=== PATIENT | female | born 1985 | race Caucasian/White ===

== ENCOUNTER → 2018-01-27 | Outpatient (CLI) | payer BC | LOC: M LRY 16:34 | DX: Z34.81 Encounter for supervision of other normal pregnancy, first trimester (principal); Z36.89 Encounter for other specified antenatal screening ==

== ENCOUNTER → 2018-03-25 | Outpatient (CLI) | payer BC | LOC: M RAD 17:15 | DX: Z34.82 Encounter for supervision of other normal pregnancy, second trimester (principal); Z36.89 Encounter for other specified antenatal screening; Z3A.19 19 weeks gestation of pregnancy | CPT/HCPCS: 76811 ==

== ENCOUNTER → 2018-05-15 | Outpatient (CLI) | payer BC ==
[2018-05-15 20:16] LABS: HEMATOCRIT 36.6 % (36.0-47.0); HEMOGLOBIN 11.9 g/dl (12.0-15.5); MEAN CORPUSCULAR HEMOGLOBIN 27.3 pg (27.0-33.0); MEAN CORPUSCULAR HGB CONC 32.5 g/dl (32.0-36.5); MEAN CORPUSCULAR VOLUME 83.9 fl (80.0-96.0); PLATELET COUNT, AUTOMATED 270 10^3/uL (150-450); RED BLOOD COUNT 4.36 10^6/uL (4.00-5.40); RED CELL DISTRIBUTION WIDTH 14.1 % (11.5-14.5); WHITE BLOOD COUNT 11.8 10^3/uL (4.0-10.0)
[2018-05-16 09:54] LABS: GLUCOSE CHALLENGE TEST 1 HOUR 117 MG/DL (LESS THAN 140)
== END ==
LOC: M LRY 16:57
DX: Z34.83 Encounter for supervision of other normal pregnancy, third trimester (principal); Z36.89 Encounter for other specified antenatal screening
CPT/HCPCS: 82950

== ENCOUNTER → 2018-06-10 | Outpatient (CLI) | payer BC | LOC: M RAD 17:13 | DX: O26.843 Uterine size-date discrepancy, third trimester (principal); Z3A.30 30 weeks gestation of pregnancy | CPT/HCPCS: 76816 ==

== ENCOUNTER → 2018-07-21 | Outpatient (REF) | payer BC | LOC: M LAB REF 17:22 | DX: O99.213 Obesity complicating pregnancy, third trimester (principal) | CPT/HCPCS: 87081 ==

== ENCOUNTER 2018-08-06 10:45 | Inpatient (IN) | payer BC ==
[2018-08-06 12:11] LABS: HEMATOCRIT 39.4 % (36.0-47.0); HEMOGLOBIN 12.9 g/dl (12.0-15.5); MEAN CORPUSCULAR HEMOGLOBIN 26.5 pg (27.0-33.0); MEAN CORPUSCULAR HGB CONC 32.7 g/dl (32.0-36.5); MEAN CORPUSCULAR VOLUME 81.1 fl (80.0-96.0); PLATELET COUNT, AUTOMATED 297 10^3/uL (150-450); RED BLOOD COUNT 4.86 10^6/uL (4.00-5.40); RED CELL DISTRIBUTION WIDTH 14.7 % (11.5-14.5); WHITE BLOOD COUNT 12.4 10^3/uL (4.0-10.0)
[2018-08-06] MEDS: LACTATED RINGER'S 1000 ML IV (12:11)
[2018-08-06] MEDS: LR 1,000 ML IV (12:11)
[2018-08-06] MEDS: OXYTOCIN DRIP 30 UNITS in APPROPRIATE DILUENT 1 EA IV (12:12)
[2018-08-06] MEDS: METHYLERGONOVINE MALEATE 0.2 MG/ML VIAL (J2210) IM (17:00)
[2018-08-06 17:02] LABS: CORD GAS ABE V -6.7; CORD GAS HCO3 V 18.3 MEQ/L; CORD GAS O2 SAT V 83.6 %; CORD GAS PH V 7.325 UNITS; CORD GAS SBC V 18.8 MEQ/L; CORD GAS TCO2 V 19.4 MEQ/L
[2018-08-06 17:04] LABS: CORD GAS ABE A -4.9; CORD GAS HCO3 A 20.3 MEQ/L; CORD GAS O2 SAT A 82.9 %; CORD GAS PCO2 A 38.4 mmHg; CORD GAS PO2 A 38.1 mmHg; CORD GAS SBC A 20.1 MEQ/L; CORD GAS TCO2 A 21.4 MEQ/L
[2018-08-06] MEDS ORDERED: ANUSOL HC CREAM 30GM TOP (17:15)
[2018-08-06] MEDS ORDERED: DIBUCAINE 1% OINTMENT 30GM TOP (17:15)
[2018-08-06] MEDS ORDERED: METOCLOPRAMIDE INJ 10MG/2ML VIAL (J2765) IV (17:15)
[2018-08-06] MEDS ORDERED: MOM 30ML SUSPENSION UDC PO (17:15)
[2018-08-06] MEDS ORDERED: DOCUSATE SODIUM 100 MG CAP PO (17:15)
[2018-08-06] MEDS ORDERED: TERBUTALINE SULFATE 1 MG/ML VIAL (J3105) SC (17:45)
[2018-08-06] MEDS: ACETAMINOPHEN 500 MG TAB PO (19:58)
[2018-08-06] MEDS: METHYLERGONOVINE MALEATE 0.2 MG TAB PO (23:03)
[2018-08-07] MEDS: METHYLERGONOVINE MALEATE 0.2 MG TAB PO ×3 (05:14→16:15)
[2018-08-07] MEDS: PRENATAL VITAMINS CHEWABLE TABLET PO (08:58)
[2018-08-07] MEDS ORDERED: METHYLERGONOVINE MALEATE 0.2 MG TAB PO (23:15)
[2018-08-08] MEDS: RHOGAM 300 MCG (1500 IU) INJ (J2790) IM (07:08)
[2018-08-08] MEDS: MEASLES,MUMPS,RUBELLA VACCINE INJ (MMR-II) (90707) SC (07:09)
[2018-08-08] MEDS: PRENATAL VITAMINS CHEWABLE TABLET PO (08:27)
[2018-08-08] MEDS: IBUPROFEN 800 MG TAB PO (09:39)
== END 2018-08-08 12:35 | disposition home or self-care (01) | DRG 560 ==
LOC: M LDI 10:45 → M OBS 18:26
PROVIDERS: Advanced Practice Midwife
PROC: 10E0XZZ Delivery of Products of Conception, External Approach (ICD-10-PCS; principal; 2018-08-06)
DX: O42.02 Full-term premature rupture of membranes, onset of labor within 24 hours of rupture (principal); O69.81X0 Labor and delivery complicated by cord around neck, without compression, not applicable or unspecified; Z3A.38 38 weeks gestation of pregnancy; Z37.0 Single live birth

== ENCOUNTER → 2019-01-06 | Outpatient (CLI) | payer BC ==
[~2019-01-06] MED LIST: IBUP-1114 PO; MAPA500T2 PO; PRENTAB9 PO
[2019-01-06 18:28] LABS: FREE T4 0.9 NG/DL (0.76-1.46); THYROID STIMULATING HORMONE 2.19 uIU/ML (0.358-3.740); TOTAL 25(OH) VITAMIN D 37.3 NG/ML (30.0-100.0)
== END ==
LOC: M SMT 15:13
PROVIDERS: ATTEND Advanced Practice Midwife
DX: F53.0 Postpartum depression (principal)

== ENCOUNTER → 2019-10-01 | Outpatient (REF) | payer BC | LOC: M SFHCWAGY 12:59 | PROVIDERS: ATTEND Advanced Practice Midwife | DX: Z12.4 Encounter for screening for malignant neoplasm of cervix (principal); R87.610 Atypical squamous cells of undetermined significance on cytologic smear of cervix (ASC-US) | CPT/HCPCS: 87624; G0123 ==

== ENCOUNTER → 2020-02-25 | Outpatient (CLI) | payer BC ==
--- NOTE | 2020-02-25 14:28 | REP ---
PELVIC SONOGRAPHY: HISTORY: Pelvic pain. FINDINGS: Transabdominal and transvaginal scanning are performed. Uterine dimensions are normal at 8.4 x 3.2 x 3.9 cm. An IUD is seen in the uterine endometrium in good position. There is a 2.4 cm follicle cyst in the right ovary. Right ovary dimensions inclusive of this are 3.9 x 3.2 x 3.2 cm. Doppler flow is present in the right ovary with resistive index by Doppler 0.48. The left ovary is normal measuring 3.1 x 1.8 x 2.2 cm. Doppler flow is present in the left ovary as well, resistive index 0.38 IMPRESSION: 2.4 cm follicle cyst right ovary. IUD in good position. Otherwise unremarkable pelvic sonography.
== END ==
LOC: M WHC 12:25
PROVIDERS: ATTEND Advanced Practice Midwife
DX: R10.2 Pelvic and perineal pain (principal)

== ENCOUNTER 2021-10-16 10:26 | Outpatient (RCR) | payer BC | END 2021-10-23 | LOC: M PT 10:26 | PROVIDERS: ATTEND Advanced Practice Midwife | DX: N39.46 Mixed incontinence (principal) ==

== ENCOUNTER → 2022-04-02 | Outpatient (CLI) | payer BC ==
[2022-04-02 16:22] LABS: FREE T4 0.96 NG/DL (0.76-1.46); THYROID STIMULATING HORMONE 6.33 uIU/ML (0.358-3.740)
== END ==
LOC: M PLALAB 11:55
PROVIDERS: ATTEND Internal Medicine Endocrinology, Diabetes & Metabolism
DX: E03.9 Hypothyroidism, unspecified (principal)

== ENCOUNTER → 2023-05-30 | Outpatient (CLI) | payer BC | LOC: M PLAIMG 10:48 | PROVIDERS: ATTEND Physician Assistant Medical | DX: G56.91 Unspecified mononeuropathy of right upper limb (principal); M40.50 Lordosis, unspecified, site unspecified ==

== ENCOUNTER → 2023-05-30 | Outpatient (CLI) | payer BC ==
[2023-05-30 15:21] LABS: HEMATOCRIT 45.3 % (36.0-47.0); HEMOGLOBIN 14.5 g/dl (12.0-15.5); MEAN CORPUSCULAR HEMOGLOBIN 27.4 pg (27.0-33.0); MEAN CORPUSCULAR VOLUME 85.5 fl (80.0-96.0); PLATELET COUNT, AUTOMATED 308 10^3/uL (150-450); WHITE BLOOD COUNT 10.8 10^3/uL (4.0-10.0)
[2023-05-30 15:45] LABS: ALBUMIN 3.5 G/DL (3.2-5.2); ALKALINE PHOSPHATASE 79 U/L (46-116); ALT/SGPT 22 U/L (7.0-40); AST/SGOT 14 U/L (<34); BILIRUBIN,TOTAL 0.4 MG/DL (0.3-1.2); BLOOD UREA NITROGEN 15 MG/DL (9-23); CARBON DIOXIDE LEVEL 28 MMOL/L (20-31); CHLORIDE LEVEL 106 MMOL/L (98-107); CREATININE FOR GFR 0.77 MG/DL (0.55-1.30); CREATININE, URINE 87.5 MG/DL; GLOMERULAR FILTRATION RATE > 60.0 (>60); GLUCOSE, FASTING 96 MG/DL (60-100); MAU/CREAT RATIO 5.7 MCG/MG (0.0-30.0); POTASSIUM SERUM 4.7 MMOL/L (3.5-5.1); SODIUM LEVEL 139 MMOL/L (136-145); TOTAL PROTEIN 6.8 G/DL (5.7-8.2)
[2023-05-30 15:46] LABS: TOTAL 25(OH) VITAMIN D 34.8 NG/ML (20.0-100.0)
[2023-05-30 15:47] LABS: FERRITIN 92.4 NG/ML (7.3-270.7); FREE T4 1.06 NG/DL (0.89-1.76); THYROID STIMULATING HORMONE 5.251 uIU/ML (0.55-4.78); VITAMIN B12 LEVEL 297 PG/ML (211-911)
[2023-05-30 16:04] LABS: HEMOGLOBIN A1c 5.3 % (4.0-6.0)
[2023-06-02 19:06] LABS: INSULIN LEVEL 86.8 uIU/mL (2.6-24.9); SOLUBLE TRANSFERRIN RECEPTOR 16.1 nmol/L (12.2-27.3)
== END ==
LOC: M PLALAB 10:49
PROVIDERS: ATTEND Internal Medicine Hematology
DX: F34.1 Dysthymic disorder (principal)

== ENCOUNTER → 2023-11-27 | Outpatient (CLI) | payer BC | LOC: M PLALAB 07:52 | PROVIDERS: ATTEND Internal Medicine Hematology | DX: E03.9 Hypothyroidism, unspecified (principal) ==

== ENCOUNTER → 2023-12-03 | Outpatient (CLI) | payer BC ==
[2023-12-03 11:44] LABS: C REACTIVE PROTEIN QUANTITATIV 1.9 MG/DL (<1.0)
[2023-12-03 11:46] LABS: THYROID STIMULATING HORMONE 3.424 uIU/ML (0.55-4.78)
== END ==
LOC: M PLALAB 08:13
PROVIDERS: ATTEND Internal Medicine Hematology
DX: E03.9 Hypothyroidism, unspecified (principal)

== ENCOUNTER → 2025-05-17 | Outpatient (CLI) | payer BC ==
[2025-05-17 15:35] LABS: FREE T4 1.2 NG/DL (0.89-1.76)
== END ==
LOC: M PLALAB 13:43
PROVIDERS: ATTEND Nurse Practitioner Family
DX: E03.9 Hypothyroidism, unspecified (principal)

== ENCOUNTER → 2025-06-11 | Outpatient (CLI) | payer BC | LOC: M SOG 07:27 | PROVIDERS: ATTEND Neuromusculoskeletal Medicine, Sports Medicine | DX: M25.551 Pain in right hip (principal) ==